=== PATIENT | female | born 1995 | race American Indian/Alaskan Native ===

== ENCOUNTER 2017-06-11 12:06 | Emergency (ER) | payer SELFPAY ==
[2017-06-11 12:16] VITALS: BP 115/83
[2017-06-11 13:56] LABS: HCG Qualitative,Urine Negative (Negative)
[2017-06-11 14:00] LABS: Bilirubin,Urine NEG (Negative); Blood,Urine LG (Negative); Color,Urine Amber (Yellow); Mucus,Urine 3+ /HPF; Urobilinogen,Urine < 2.0 mg/dL (<2.0)
[2017-06-11 14:01] LABS: RBC,Urine > 182.0 /HPF (0.0-6.0); WBC,Urine > 182.0 /HPF (0.0-6.0)
== END 2017-06-11 19:15 | disposition left against medical advice (07) ==
LOC: ED 12:06
DX: N39.0 Urinary tract infection, site not specified (principal); Z53.21 Procedure and treatment not carried out due to patient leaving prior to being seen by health care provider
CPT/HCPCS: 81001; 81025